=== PATIENT | male | born 1985 | race African-American/Black ===

== ENCOUNTER 2016-09-30 16:45 | Inpatient (IN) | payer SELFPAY ==
[2016-09-30] MEDS ORDERED: ACETAMINOPHEN 325 MG TAB PO ONE (16:57)
[2016-09-30 19:25] LABS: ADD DIFF? YES; ADD MORPH? NO; ATYPICAL LYMPHOCYTE FLAG 0 (0-99); FRAGMENT RBC FLAG 0 (0-99); HEMATOCRIT 45.9 % (40.0-51.0); HEMOGLOBIN 15.3 g/dL (13.7-17.5); LIPEMIA HEMOLYSIS FLAG 80 (0-99); MEAN CELL HEMOGLOBIN 28.5 pg (27.9-34.1); MEAN CELL HEMOGLOBIN CONCENTR. 33.3 g/dL (32.4-36.7); MEAN CELL VOLUME 85.5 fL (81.5-99.8); MEAN PLATELET VOLUME 12.1 fL (8.7-11.7); PLATELET CLUMPS FLAG 0 (0-99); PLATELET COUNT 230 10^3/uL (150-400); RED BLOOD CELL COUNT 5.37 10^6/uL (4.40-6.38); RED CELL DISTRIBUTION WIDTH 13.9 % (11.5-15.2)
[2016-09-30 19:27] LABS: LEFT SHIFT FLG 140 (0-99)
[2016-09-30 19:28] LABS: ADD SCAN? NO
[2016-09-30 19:30] LABS: ANION GAP 14 mEq/L (8-16); CALCIUM 9.2 mg/dL (8.5-10.4); CARBON DIOXIDE 21 mEq/l (22-31); CHLORIDE 100 mEq/L (97-110); CREATININE 1.5 mg/dL (0.7-1.3); GLOMERULAR FILTRATION RATE 55; GLUCOSE 117 mg/dL (70-100); POTASSIUM 3.3 mEq/L (3.5-5.2); SODIUM 135 mEq/L (134-144)
[2016-09-30] MEDS ORDERED: NS 1,000 ML IV ONE (19:35)
[2016-09-30 20:38] LABS: PLATELET ESTIMATE ADEQUATE (ADEQ)
[2016-09-30 20:53] LABS: APTT 31.3 SEC (23.0-38.0); INR 1.17 (0.83-1.16); PROTIME(PATIENT) 14.9 SEC (12.0-15.0)
[2016-09-30 20:56] LABS: BILIRUBIN,TOTAL 3.8 mg/dL (0.1-1.4)
[2016-09-30 21:10] LABS: BILIRUBIN-CONJUGATED 1.1 mg/dL (0.0-0.5); BILIRUBIN-UNCONJUGATED 2.7 mg/dL (0.0-1.1)
[2016-09-30] MEDS ORDERED: ONDANSETRON DISINTEGRATING 4 MG TAB PO PRN (21:38)
[2016-09-30] MEDS ORDERED: ONDANSETRON 4 MG/2 ML VIAL IVP PRN (21:38)
[2016-09-30] MEDS ORDERED: BENZONATATE 100 MG CAP PO PRN (21:40)
[2016-09-30 22:37] LABS: ALBUMIN 4.1 g/dL (3.5-5.0); BILIRUBIN,TOTAL 3.8 mg/dL (0.1-1.4); BILIRUBIN-UNCONJUGATED 2.8 mg/dL (0.0-1.1); TOTAL PROTEIN 7.9 g/dL (6.3-8.2)
--- NOTE | 2016-09-30 22:55 | GHP ---
[f rep st] HISTORY AND PHYSICAL DATE OF ADMISSION: 09/30/2016 CHIEF COMPLAINT: 1. Cough. 2. Pneumonia. HISTORY OF PRESENT ILLNESS: Patient is a 30-year-old, male with no past medical history, presenting with productive cough, fevers and myalgias starting this morning. Says that he started coughing up green sputum streaked with blood. He felt well yesterday. More fatigued today. No recent ill contacts. His girlfriend brought him to the emergency room today when he stated he was coughing up blood. He denies any TB risk factors including homelessness, fdc or stay in a care home. No nausea, vomiting or diarrhea. REVIEW OF SYSTEMS: I completed a 10-point review of systems, negative except as noted in HPI. PAST MEDICAL HISTORY: None. PAST SURGICAL HISTORY: None. ALLERGIES: No known drug allergies. MEDICATIONS: None. SOCIAL HISTORY: denies Etoh, illicits, tobacco. Works on a [employer]. FAMILY HISTORY: Mother passed from liver cancer. Did not know his father. PHYSICAL EXAM: VITAL SIGNS: Temperature 37.8, blood pressure 124, heart rate 104, now 80, respiration 16, 100% on 2 L. GENERAL: Ill appearing, fatigued, sleeping in bed. HEENT: Mild conjunctival injection. Dry mucous membranes. Oropharynx is clear. No exudate or erythema. CV: Tachy, regular. No murmurs , gallops or rubs. LUNGS: Mild crackles left lower base. ABDOMEN: Soft, nontender, nondistended. Positive bowel sounds. : No suprapubic tenderness. MUSCULOSKELETAL: 5/5 upper lower extremity. NEURO: 2 through 12 intact. PSYCH: Alert and oriented x3. LABS: WBC is 28, hemoglobin 15, hematocrit 45, platelets are 230. INR is 1.1, PT is 14.7. Lactate is 0.9. Sodium 135, potassium 3.3, chloride 100, carbon dioxide 21, creatinine is 1.5, glucose is 117, total bilirubin 3.8, conjugated 1.1, unconjugated 2.7. Chest x-ray personally reviewed by me, positive spine sign on lateral view. Left lower lobe opacity. Right apical subpleural thickening ASSESSMENT/PLAN: 1. Sepsis: Secondary to pneumonia with leukocytosis. Sputum and blood cultures are pending. Received Levaquin in the emergency room. Cont with ceftriaxone and azithromycin for CAP. BP and lactate normal. Reports blood- streaked sputum; no TB risk factors. Consider CT chest if not improving. 2. Leukocytosis: Again, secondary to pneumonia. We will check a viral panel. Blood cultures are pending. Antibiotics as above. 3. Acute kidney injury: Unclear baseline. Suspect secondary to dehydration versus possible hypotension prior on arrival. We will calculate a FENA. Continue IV fluids. 4. Hyperbilirubinemia: Unclear. Denies any abdominal pain. May be in the setting of acute illness. We will repeat these in the morning. 5. Hypokalemia: We will replete and repeat in the morning. 6. Subpleural thickening: will need FU imaging outpatient 7. Diet: Regular. 8. Deep venous thrombosis prophylaxis: Lovenox. DISPOSITION: Patient warrants inpatient admission given acute sepsis warranting IV fluids and antibiotics. /[id number]/MODL MTDD
[2016-10-01] MEDS: NS 1,000 ML IV SCH ×3 (04:06→22:13)
[2016-10-01] MEDS: guaiFENesin/CODEINE PHOS 10 ML UDCUP PO PRN ×2 (04:12→22:21)
[2016-10-01] MEDS: ACETAMINOPHEN 325 MG TAB PO PRN ×3 (04:13→22:13)
[2016-10-01 04:42] LABS: HEMATOCRIT 42.5 % (40.0-51.0); HEMOGLOBIN 14.2 g/dL (13.7-17.5); MEAN CELL HEMOGLOBIN 28.5 pg (27.9-34.1); MEAN CELL HEMOGLOBIN CONCENTR. 33.4 g/dL (32.4-36.7); MEAN CELL VOLUME 85.3 fL (81.5-99.8); RED BLOOD CELL COUNT 4.98 10^6/uL (4.40-6.38)
[2016-10-01 04:55] LABS: ALANINE AMINOTRANSFERASE 39 IU/L (21-72); ALBUMIN 3.5 g/dL (3.5-5.0); ALKALINE PHOSPHATASE 98 IU/L (38-126); ANION GAP 11 mEq/L (8-16); ASPARTATE AMINOTRANSFERASE 24 IU/L (17-59); BILIRUBIN,TOTAL 3.2 mg/dL (0.1-1.4); CARBON DIOXIDE 23 mEq/l (22-31); CHLORIDE 103 mEq/L (97-110); CREATININE 1.4 mg/dL (0.7-1.3); GLOMERULAR FILTRATION RATE 60; GLUCOSE 91 mg/dL (70-100); POTASSIUM 3.9 mEq/L (3.5-5.2); SODIUM 137 mEq/L (134-144); TOTAL PROTEIN 6.9 g/dL (6.3-8.2)
[2016-10-01 05:02] LABS: BILIRUBIN-CONJUGATED 0.4 mg/dL (0.0-0.5); BILIRUBIN-UNCONJUGATED 2.8 mg/dL (0.0-1.1)
[2016-10-01] MEDS: AZITHROMYCIN 250 MG TAB PO SCH (10:04)
[2016-10-01] MEDS ORDERED: IOPAMIDOL (ISOVUE 370) 100 ML BTL IV ONE (12:00)
--- NOTE | 2016-10-01 14:36 | HOSPPROG ---
Hospitalist Progress Note Assessment/Plan: * Pneumonia - community acquired - with sepsis -continue Ceftriaxone, azithro * Pulmonary nodule -repeat CXR 6 months * Increased LFT -fatty liver by CT * Acute renal failure - likely due to sepsis -continue IVF - recheck in am Subjective: Still with severe pleurtic CP, feeling a little better Objective: Vital Signs Temp Pulse Resp BP Pulse Ox 36.4 C 64 18 122/70 H 98 10/01/16 11:22 10/01/16 11:22 10/01/16 11:22 10/01/16 11:22 10/01/16 11:22 PT 14.9 SEC (12.0-15.0) 09/30/16 17:40 INR 1.17 (0.83-1.16) H 09/30/16 17:40 CXR viewed, my personal interpretation is - some infiltrate, clear nodules CTA chest - no PE, nodules unconcerning, dense LLL PNA - Physical Exam Constitutional: no apparent distress, appears nourished, not in pain Cardiovascular: regular rate and rhythym, no murmur, rub, or gallop Respiratory: no respiratory distress, no rales or rhonchi, clear to auscultation Gastrointestinal: normoactive bowel sounds, soft, non-tender abdomen, no palpable masses Skin: no rashes or abrasions, no fluctuance, no induration Neurologic: AAOx3, sensation intact bilaterally Psychiatric: interacting appropriately, not anxious, not encephalopathic, thought process linear ICD10 Worksheet Patient Problems: Problems Problem Status Onset Fever Acute Pneumonia Acute
--- NOTE | 2016-10-01 16:37 | EDPHY ---
H & P Time Seen by Provider: 09/30/16 16:53 HPI/ROS: CHIEF COMPLAINT: Fever, cough, myalgias, headache HISTORY OF PRESENT ILLNESS: 30-year-old male presents to the emergency department by private vehicle with cough and fever that started today. He states that he has been coughing up bloody sputum. No recent travel. No known ill contacts. He woke up with a headache this morning. He has diffuse aches and pains throughout his entire body. He feels mildly short of breath. He denies abdominal pain. Denies back pain. No history of pneumonia. He did not receive a flu shot in the fall. REVIEW OF SYSTEMS: Constitutional: Subjective fevers, chills as above. Eyes: No double or blurry vision. ENT: No sore throat. Respiratory: Cough. Shortness of breath as above. Cardiac: No chest pain. Gastrointestinal: No abdominal pain, vomiting or diarrhea. Genitourinary: No dysuria. Musculoskeletal: No neck or back pain. Skin: No rashes. Neurological: headache. Past Medical/Surgical History: Negative Social History: Single Smoking Status: Current some day smoker Physical Exam: General Appearance: Alert, no distress. 37.8, 93% on room air. No respiratory distress. Appears mildly ill. Eyes: Pupils equal and round. Extraocular motions are all intact. ENT: Mouth: Mucous membranes moist. Respiratory: No wheezing, rhonchi, or rales, lungs are clear to auscultation. Cardiovascular: Regular rate and rhythm. Gastrointestinal: Abdomen is soft and nontender, no masses, no rebound or guarding, bowel sounds normal. Neurological: Alert and oriented x 3, cranial nerves II through XII grossly intact Skin: Warm and dry, no rashes. Musculoskeletal: Nontender to palpate along the cervical, thoracic or lumbar spine. Neck is supple. Extremities: Full range of motion and no peripheral edema. Psychiatric: Patient is oriented X 3, there is no agitation. Constitutional: Initial Vital Signs Temperature (C) 37.8 C 09/30/16 16:48 Heart Rate 104 H 09/30/16 16:48 Respiratory Rate 16 09/30/16 16:48 Blood Pressure 124/84 H 09/30/16 16:48 O2 Sat (%) 93 09/30/16 16:48 O2 Delivery Mode Nasal Cannula O2 (L/minute) 2 Allergies/Adverse Reactions: No Known Allergies Allergy (Unverified 09/30/16 16:51) Home Medications: Medication Instructions Recorded NK [No Known Home Meds] 09/30/16 Medical Decision Making - Diagnostics Imaging Results: Imaging Impressions Chest/Thorax CTA 10/01/16 10:20 Impression: 1. There is no CT evidence of pulmonary artery thromboemboli. 2. Tiny calcified granuloma in the right upper lobe with some nonspecific subpleural nodular thickening in the right apex, perhaps representing some fibrosis or subsegmental atelectasis. Surveillance CT or chest radiographic re- imaging in 6 months is suggested. 3. Mild subsegmental atelectasis versus minimal infiltrate in the right middle lobe. 4. Densely consolidated left lower lobe with left hilar reactive lymphadenitis. 5. Hepatic steatosis. Imaging: I viewed and interpreted images myself ED Course/Re-evaluation: 30-year-old male presents to the emergency department with fever, general malaise and cough. Chest x-ray reveals likely left lower lobe pneumonia. The patient had blood cultures drawn. Lactate was normal at 0.9. He was given 1st dose of 750 mg Levaquin IV in the emergency department. Patient also require repeat imaging given finding since this was discussed with the patient. CBC reveals elevated white blood cell count of over 28,000. His creatinine is 1.5. I have no record to compare this to. The patient does meet SIRS criteria. Blood cultures have been ordered and are pending. Lactate is normal. He received IV antibiotics in the emergency department as well as IV normal saline. He also received 1 g of Tylenol p.o. for fever. The case was discussed with Dr. Bessy Billy, supervising physician, who did not directly evaluate this patient but agrees with treatment and plan. The patient will be admitted to Dr. Thu Gillespie to the medical-surgical floor. Differential Diagnosis: Including but not limited to pneumonia, sepsis, influenza, viral upper respiratory infection, bronchitis - Data Points Laboratory Results: Laboratory Results 10/01/16 04:13 10/01/16 04:13 10/01/16 10/01/16 09/30/16 04:13 04:13 17:10 WBC 22.77 10^3/uL H 10^3/uL (3.80-9.50) RBC 4.98 10^6/uL 10^6/uL (4.40-6.38) Hgb 14.2 g/dL g/dL (13.7-17.5) Hct 42.5 % % (40.0-51.0) MCV 85.3 fL fL (81.5-99.8) MCH 28.5 pg pg (27.9-34.1) MCHC 33.4 g/dL g/dL (32.4-36.7) RDW 14.0 % % (11.5-15.2) Plt Count 199 10^3/uL 10^3/uL (150-400) Smear Review By Veda GRECO MD Sodium 137 mEq/L mEq/L (134-144) Potassium 3.9 mEq/L mEq/L (3.5-5.2) Chloride 103 mEq/L mEq/L (97-110) Carbon Dioxide 23 mEq/l mEq/l (22-31) Anion Gap 11 mEq/L mEq/L (8-16) BUN 12 mg/dL mg/dL (7-23) Creatinine 1.4 mg/dL H mg/dL (0.7-1.3) Estimated GFR 60 Glucose 91 mg/dL mg/dL (70-100) Calcium 9.0 mg/dL mg/dL (8.5-10.4) Total Bilirubin 3.2 mg/dL H mg/dL (0.1-1.4) Conjugated Bilirubin 0.4 mg/dL mg/dL (0.0-0.5) Unconjugated Bilirubin 2.8 mg/dL H mg/dL (0.0-1.1) AST 24 IU/L IU/L (17-59) ALT 39 IU/L IU/L (21-72) Alkaline Phosphatase 98 IU/L IU/L (38-126) Total Protein 6.9 g/dL g/dL (6.3-8.2) Albumin 3.5 g/dL g/dL (3.5-5.0) Microbiology Results: MICROBIOLOGY 09/30/16 23:55 Sputum, Expectorated - Final 09/30/16 23:55 Sputum, Expectorated Sputum Culture - Preliminary Medications Given: Discontinued Medications Acetaminophen (Tylenol) 650 mg PO EDNOW ONE Stop: 09/30/16 16:58 Last Admin: 09/30/16 17:11 Dose: 650 mg Levofloxacin/Dextrose (Levaquin 750 Mg (Premix)) 150 mls @ 100 mls/hr IV EDNOW ONE PRN Reason: Protocol Stop: 09/30/16 18:54 Last Admin: 09/30/16 18:00 Dose: 150 mls Sodium Chloride (Ns) 1,000 mls @ 0 mls/hr IV ONCE ONE PRN Reason: Wide Open Stop: 09/30/16 19:36 Last Admin: 09/30/16 19:49 Dose: 1,000 mls Departure - Departure Disposition: [facility] Inpatient Acute Clinical Impression: Fever Qualifiers: Fever type: unspecified Qualified Code(s): R50.9 - Fever, unspecified Pneumonia Qualifiers: Pneumonia type: due to unspecified organism Laterality: left Lung location: lower lobe of lung Qualified Code(s): J18.1 - Lobar pneumonia, unspecified organism Condition: Good
[2016-10-02 04:46] VITALS: RESP 16
[2016-10-02 05:03] LABS: % IMMATURE GRANULYOCYTES 0.6 % (0.0-1.1); ABSOLUTE IMMATURE GRANULOCYTES 0.07 10^3/uL (0.00-0.10); ADD DIFF? NO; ADD MORPH? NO; ADD SCAN? NO; ATYPICAL LYMPHOCYTE FLAG 30 (0-99); FRAGMENT RBC FLAG 0 (0-99); HEMATOCRIT 39.7 % (40.0-51.0); LEFT SHIFT FLG 50 (0-99); LIPEMIA HEMOLYSIS FLAG 80 (0-99); MEAN CELL HEMOGLOBIN 28.6 pg (27.9-34.1); MEAN CELL HEMOGLOBIN CONCENTR. 32.7 g/dL (32.4-36.7); MEAN CELL VOLUME 87.4 fL (81.5-99.8); MEAN PLATELET VOLUME 11.7 fL (8.7-11.7); PLATELET CLUMPS FLAG 0 (0-99); PLATELET COUNT 202 10^3/uL (150-400); RED BLOOD CELL COUNT 4.54 10^6/uL (4.40-6.38); RED CELL DISTRIBUTION WIDTH 14.2 % (11.5-15.2)
[2016-10-02 05:16] LABS: ALANINE AMINOTRANSFERASE 32 IU/L (21-72); ALBUMIN 3.2 g/dL (3.5-5.0); ALKALINE PHOSPHATASE 75 IU/L (38-126); ANION GAP 8 mEq/L (8-16); ASPARTATE AMINOTRANSFERASE 18 IU/L (17-59); BILIRUBIN,TOTAL 1.2 mg/dL (0.1-1.4); BILIRUBIN-CONJUGATED 0.4 mg/dL (0.0-0.5); BILIRUBIN-UNCONJUGATED 0.8 mg/dL (0.0-1.1); CALCIUM 8.5 mg/dL (8.5-10.4); CARBON DIOXIDE 22 mEq/l (22-31); CHLORIDE 109 mEq/L (97-110); CREATININE 1.2 mg/dL (0.7-1.3); GLOMERULAR FILTRATION RATE > 60; GLUCOSE 84 mg/dL (70-100); POTASSIUM 4.3 mEq/L (3.5-5.2); SODIUM 139 mEq/L (134-144); TOTAL PROTEIN 6.2 g/dL (6.3-8.2)
[2016-10-02] MEDS: NS 1,000 ML IV SCH (06:17)
[2016-10-02] MEDS: AZITHROMYCIN 250 MG TAB PO SCH (09:16)
[2016-10-02] MEDS: ACETAMINOPHEN 325 MG TAB PO PRN (09:22)
[2016-10-02 11:19] VITALS: BP 103/60; PULSE 56; TEMP 97.9; O2SAT 96
[2016-10-02] MEDS ORDERED: PNEUMOCOCCAL 0.5ML VACCINE VIAL IM ONE (13:43)
--- NOTE | 2016-10-02 16:55 | GDS ---
[f rep st] DISCHARGE SUMMARY DISCHARGE DIAGNOSES: 1. Community-acquired pneumonia, with sepsis. 2. Fatty liver. 3. Acute renal failure due to sepsis, resolved. HISTORY: The patient is a 30-year-old male, who presented with hemoptysis and pleuritic chest pain. He was diagnosed with pneumonia. We did get a CT angiogram of the chest was negative for PE. His chest x-ray showed some pulmonary nodules, which on CAT scan were found to be calcified granulomas. He was treated with ceftriaxone and azithromycin, improved over his two-night stay, and is feeling great on the day of discharge. He is weaned off oxygen. His white blood cell count has come down. His creatinine has normalized. His LFTs have normalized. He was counseled regarding smoking cess ation. DISCHARGE MEDICATIONS: Please see computerized record for full detailed list. New medications: 1. Ceftin 500 mg p.o. twice daily for 5 more days. 2. Azithromycin 500 mg p.o. daily for 5 more days. ADDITIONAL DISCHARGE INSTRUCTIONS: 1. Smoking cessation advised. 2. Okay for him to fly to see family in [place], as previously scheduled. He was given an airline ex cuse for his missed flight today. He is rapidly improving, and I anticipate will be okay to fly marleny . 3. Followup chest x-ray in 6 months regarding the pulmonary granuloma, as recommended by Radiology, although my clinical suspicion that these are anything significant is low. Greater than 30 minutes' time was spent arranging this discharge. Patient seen and examined by me tulio cunningham the day of discharge. /[id number]/MODL
== END 2016-10-02 15:10 | disposition home or self-care (01) | DRG 871 ==
LOC: F3E 22:15 → OBSVTOIN 10-01 10:22
PROVIDERS: ADMIT Internal Medicine; ATTEND Internal Medicine
DX: A41.9 Sepsis, unspecified organism (principal); J18.9 Pneumonia, unspecified organism; N17.9 Acute kidney failure, unspecified; F17.210 Nicotine dependence, cigarettes, uncomplicated
CPT/HCPCS: 96365; G0009; G0378; J0696; J1956; Q9967